=== PATIENT | male | born 1980 | race American Indian/Alaskan Native ===

== ENCOUNTER 2017-12-14 19:55 | Emergency (ER) | payer OTHER ==
[2017-12-14 21:27] VITALS: BP 134/64; PULSE 81; RESP 20; TEMP 99; O2SAT 98
--- NOTE | 2017-12-14 23:36 | C.PDOC ---
History Of Present Illness 37 year old male presents to the ER after he stepped on an object while stepping down a ladder at work today and twisted his left ankle. Denies fall, injury, weakness, or numbness. Time Seen by Provider: 12/14/17 21:32 Chief Complaint (Nursing): Lower Extremity Problem/Injury History Per: Patient History/Exam Limitations: no limitations Onset/Duration Of Symptoms: Hrs Current Symptoms Are (Timing): Still Present Recent travel outside of the [place]: No - Ankle/Foot Description Of Injury: Twisted Past Medical History Reviewed: Historical Data, Nursing Documentation, Vital Signs Vital Signs: Last Vital Signs Temp 99 F 12/14/17 21:24 Pulse 81 12/14/17 21:24 Resp 20 12/14/17 21:24 BP 134/64 12/14/17 21:24 Pulse Ox 98 12/15/17 02:03 Family History: States: Unknown Family Hx - Social History Hx Alcohol Use: No Hx Substance Use: Yes - Immunization History Hx Tetanus Toxoid Vaccination: Yes Hx Influenza Vaccination: Yes Review Of Systems Musculoskeletal: Positive for: Foot Pain Neurological: Negative for: Weakness, Numbness Physical Exam - Physical Exam Appears: Non-toxic, No Acute Distress Skin: Normal Color, Warm, Dry Head: Atraumatic, Normacephalic Eye(s): bilateral: Normal Inspection Extremity: Tenderness (To left lateral malleolus and lateral dorsal forefoot), Capillary Refill (<2 seconds), No Deformity, Swelling (Moderate to left proximal forefoot) Pulses: Left Dorsalis Pedis: Normal, Right Dorsalis Pedis: Normal Neurological/Psych: Oriented x3, Normal Speech, Normal Motor, Normal Sensation ED Course And Treatment O2 Sat by Pulse Oximetry: 98 - Other Rad Left foot x-ray X-Ray: Interpreted by Me, Viewed By Me Interpretation: No acute fractures or dislocations Left ankle x-ray X-Ray: Interpreted by Me, Viewed By Me Interpretation: No acute fractures or dislocations Progress Note: Left ankle x-ray and left foot x-ray ordered, results were negative. Patient placed in arlin wrap and air cast and was given crutches with instructions by CP and instructed to follow up with PMD for further evaluation or return to ER if symptoms worsen. Disposition Counseled Patient/Family Regarding: Diagnosis, Need For Followup, Rx Given - Disposition Referrals: Estela Cortes MD [Staff Provider] - Disposition: HOME/ ROUTINE Disposition Time: 23:33 Condition: STABLE Additional Instructions: Leg elevation Apply ICE to area Take motrin for pain Follow upwith orthopedist Return to ER if worse Prescriptions: Ibuprofen [Motrin Tab] 800 mg PO QID #24 tab Instructions: Ankle Sprain (ED), Ankle Stirrup Splint (ED) Forms: [employer] (Irish), Work Excuse - Clinical Impression Clinical Impression: Left ankle sprain - PA / NON [employer] / Resident Statement MD/DO has reviewed & agrees with the documentation as recorded. - Scribe Statement The provider has reviewed the documentation as recorded by the Scribe Shmuel Barnes All medical record entries made by the Scribe were at my direction and personally dictated by me. I have reviewed the chart and agree that the record accurately reflects my personal performance of the history, physical exam, medical decision making, and the department course for this patient. I have also personally directed, reviewed, and agree with the discharge instructions and disposition.
--- NOTE | 2017-12-15 10:26 | RAD ---
PROCEDURE: Left Ankle Radiographs. HISTORY: Pain, injury COMPARISON: None FINDINGS: BONES: There is no acute displaced fracture or bone destruction. Bone alignment and mineralization are normal. JOINTS: Normal. No osteoarthritis. Ankle mortise maintained. Talar dome intact SOFT TISSUES: There is moderate lateral soft tissue swelling. OTHER FINDINGS: None. IMPRESSION: No acute fracture or dislocation. Moderate lateral soft tissue swelling.
--- NOTE | 2017-12-15 10:27 | RAD ---
PROCEDURE: Left Foot Radiographs. HISTORY: Pain,injury COMPARISON: None. FINDINGS: BONES: Bone alignment and mineralization are normal. There is no acute displaced fracture or bone destruction. JOINTS: Normal. SOFT TISSUES: Normal. OTHER FINDINGS: None. IMPRESSION: No acute fracture or dislocation.
== END 2017-12-14 23:55 | disposition home or self-care (01) ==
LOC: C.ER 19:55
DX: S93.402A Sprain of unspecified ligament of left ankle, initial encounter (principal); X50.9XXA Other and unspecified overexertion or strenuous movements or postures, initial encounter; Y92.89 Other specified places as the place of occurrence of the external cause; Y99.0 Civilian activity done for income or pay